=== PATIENT | female | born 1965 | race Caucasian/White ===

== ENCOUNTER 2016-03-27 03:37 | Emergency (ER) | payer MEDICAID ==
[~2016-03-27] VITALS: Ht 157.5 cm; Wt 72.6 kg
[~2016-03-27 03:37] MED LIST: ALPR0.5T PO; ATEN50TA PO; BENA40TA2 PO; FERR325T28 PO; HYDR25TA4 PO; METF500T4 PO; PARO10TA3 PO
[2016-03-27] MEDS ORDERED: hydrALAZINE HCL IV 20 MG VIAL IV ONE (04:30)
[2016-03-27] MEDS ORDERED: hydrALAZINE HCL IV 20 MG VIAL ONE (04:30)
[2016-03-27 04:37] LABS: BASOPHILS # (AUTO) 0.1 /CMM (0.0-0.2); BASOPHILS % (AUTO) 1.1 % (0.0-2.0); DIFF TOTAL % 100 %; EOSINOPHILS # (AUTO) 0.1 /CMM (0.0-0.7); EOSINOPHILS % (AUTO) 1.3 % (0.0-6.0); HEMATOCRIT 31 % (33-45); HEMOGLOBIN 10.2 g/dL (11.5-14.8); LYMPHOCYTES # (AUTO) 2.2 /CMM (0.8-4.8); LYMPHOCYTES % (AUTO) 20.5 % (20.0-44.0); MEAN CORPUSCULAR HEMOGLOBIN 25 PG (26.0-33.0); MEAN CORPUSCULAR HGB CONC 33 g/dl (31.0-36.0); MEAN CORPUSCULAR VOLUME 76 fL (82-100); MONOCYTES # (AUTO) 0.7 /CMM (0.1-1.30); MONOCYTES % (AUTO) 6.4 % (2.0-12.0); NEUTROPHILS # (AUTO) 7.6 /CMM (1.8-8.9); NEUTROPHILS % (AUTO) 70.7 % (43.0-81.0); PLATELET COUNT (AUTO) 298 /CMM (150-450); RED BLOOD CELL COUNT(AUTO) 4.11 MIL/uL (4.0-5.2); WHITE BLOOD COUNT (AUTO) 10.7 K/uL (4.3-11.0)
[2016-03-27 04:42] LABS: ANION GAP 11 (5-14); CALCIUM, SERUM 8.7 mg/dL (8.5-10.1); CARBON DIOXIDE 23 mmol/L (21-32); CHLORIDE 103 mmol/L (98-107); CREATININE 0.7 mg/dL (0.6-1.3); GFR 88 mL/min (>60); GLUCOSE 226 mg/dL (74-106); SODIUM SERUM 133 mmol/L (136-145); UREA NITROGEN, BLOOD 13 mg/dL (7-18)
[2016-03-27 04:51] LABS: TROPONIN I < 0.017 ng/mL (0.00-0.056)
[2016-03-27 05:23] VITALS: BP 162/82
== END 2016-03-27 05:15 | disposition home or self-care (01) ==
LOC: ER 03:37
DX: I16.0 Hypertensive urgency (principal); E11.9 Type 2 diabetes mellitus without complications; E78.00 Pure hypercholesterolemia, unspecified; F17.200 Nicotine dependence, unspecified, uncomplicated; R51 Headache
CPT/HCPCS: 36415; 70450; 71010; 80048; 84484; 85025; 93005; 96374; 99285; A4606; J0360; Z7610

== ENCOUNTER 2017-10-25 14:53 | Emergency (ER) | payer MEDICAID ==
[~2017-10-25] VITALS: Ht 157.5 cm; Wt 87.5 kg
[~2017-10-25 14:53] MED LIST changes: -BENA40TA2 PO; +BENA40TA8 PO; +METF-440 PO; -METF500T4 PO; -PARO10TA3 PO; +PARO10TA4 PO
--- NOTE | 2017-10-25 15:20 | NUR ---
AAOX3, C/O L SIDED CHEST PAIN THAT STARTED AT 0200 TODAY GENERALIZED WEAKNESS X 3 WEEKS. RR IS EVEN AND UNLABORED WITH NAD NOTED. SKIN IS WARM AND DRY. AWAITING MD FOR EVAL.
[2017-10-25] MEDS ORDERED: ASPIRIN 325 MG TABLET ONE (15:53)
[2017-10-25] MEDS ORDERED: ASPIRIN 325 MG TABLET PO ONE (16:00)
[2017-10-25 16:13] LABS: CALCIUM, SERUM 8.9 mg/dL (8.5-10.1); CARBON DIOXIDE 24 mmol/L (21-32); CHLORIDE 103 mmol/L (98-107); CREATININE 0.8 mg/dL (0.6-1.3); GLUCOSE 146 mg/dL (74-106); SODIUM SERUM 133 mmol/L (136-145); UREA NITROGEN, BLOOD 15 mg/dL (7-18)
[2017-10-25 16:20] LABS: BASOPHILS # (AUTO) 0.1 /CMM (0.0-0.2); BASOPHILS % (AUTO) 1.1 % (0.0-2.0); EOSINOPHILS % (AUTO) 1.1 % (0.0-6.0); HEMATOCRIT 32 % (33-45); HEMOGLOBIN 10.5 g/dL (11.5-14.8); LYMPHOCYTES % (AUTO) 19.9 % (20.0-44.0); MEAN CORPUSCULAR HEMOGLOBIN 26 PG (26.0-33.0); MEAN CORPUSCULAR HGB CONC 33 g/dl (31.0-36.0); MEAN CORPUSCULAR VOLUME 80 fL (82-100); MONOCYTES # (AUTO) 0.4 /CMM (0.1-1.30); MONOCYTES % (AUTO) 4.4 % (2.0-12.0); NEUTROPHILS # (AUTO) 7.2 /CMM (1.8-8.9); NEUTROPHILS % (AUTO) 73.5 % (43.0-81.0); RDW COEFFICIENT OF VARIATION 14.6 (11.5-15.0); RED BLOOD CELL COUNT(AUTO) 4.03 MIL/uL (4.0-5.2); WHITE BLOOD COUNT (AUTO) 9.8 K/uL (4.3-11.0)
[2017-10-25 16:24] LABS: TROPONIN I < 0.017 ng/mL (0.00-0.056)
[2017-10-25 16:27] LABS: INR 0.86 (0.85-1.15)
--- NOTE | 2017-10-25 16:56 | NUR ---
IV removed. Catheter intact and site benign. Pressure and 4x4 applied to site. No bleeding noted.Patient discharged to home in stable condition. Written and verbal after care instructions given. Patient verbalizes understanding of instruction.
[2017-10-25 16:59] VITALS: BP 152/88
[2017-10-25 17:58] LABS: BAND % (MANUAL) 17 % (0.0-5.0); EOSINOPHILS % (MANUAL) 1 % (0-4); LYMPHOCYTES % (MANUAL) 22 % (16-48); MONOCYTES % (MANUAL) 6 % (0-11.0); NEUTROPHILS % (MANUAL) 54 (42-76)
[2017-10-25 18:42] LABS: PLATELET COUNT (AUTO) 415 /CMM (150-450)
== END 2017-10-25 16:59 | disposition home or self-care (01) ==
LOC: ER 14:55
DX: R07.89 Other chest pain (principal); F17.200 Nicotine dependence, unspecified, uncomplicated; I10 Essential (primary) hypertension; E78.00 Pure hypercholesterolemia, unspecified; E11.9 Type 2 diabetes mellitus without complications; Z98.51 Tubal ligation status; Z98.890 Other specified postprocedural states; Z79.84 Long term (current) use of oral hypoglycemic drugs; Z79.899 Other long term (current) drug therapy
CPT/HCPCS: 36415; 71045; 80048; 84484; 85025; 85730; 93005; 99285; 99406; A4606; Z7610